=== PATIENT | male | born 1950 | race Two or more races ===

== ENCOUNTER 2017-07-31 10:19 | Inpatient (IN) | payer OTHER ==
[2017-07-31 13:14] VITALS: BMI 22.4
--- NOTE | 2017-07-31 14:06 | HP ---
COWS - Scale Resting Pulse: 0= [place] 80 or Below Sweatin=Flushed/Facial Moisture Restless Observation: 3= Extraneous Movement Pupil Size: 2= Moderately Dilated Bone or Joint Aches: 2= Severe Diffuse Aches Runny Nose/ Eye Tearin= Runny Nose/Eyes GI Upset > 30mins: 3= Vomiting/Diarrhea Tremor Observation: 2= Slight Tremor Visible Yawning Observation: 2= >3x During Session Anxiety or Irritability: 2=Irritable/Anxious Goose Flesh Skin: 0=Smooth Skin COWS Score: 20 Admission ROS S - HPI Chief Complaint: I NEED HELP TO STOP USING HEROIN Allergies/Adverse Reactions: Allergies Allergy/AdvReac Type Severity Reaction Status Date / Time No Known Allergies Allergy Verified 07/31/17 13:52 History of Present Illness: THIS 67 YEARS OLD MALE WITH HEROIN DEPENDENCE,SEEKING DETOX,WITHDRAWAL SYMPTOM, LAST DETOX [facility] IN 12/27 SQUAMOUS CELL CARCINOMA OF RIGHT NECK S/P RADICAL NECK DISSECTION,CHEMO AND RADIATION IN 2000 ON RENISSION NICOTINE DEPENDENCE LONGEST PERIOD OF SOBRIETY 6 YEARS Exam Limitations: No Limitations - Ebola screening Have you traveled outside of the country in the last 21 days: No Have you had contact with anyone from an Ebola affected area: No Have you been sick,other than usual withdrawal symptoms: No Do you have a fever: No - Review of Systems Constitutional: Chills, Loss of Appetite, Malaise, Night Sweats, Changes in sleep, Unintentional Wgt. Loss EENT: reports: Tearing, Nose Congestion, Other (S/P RIGHT RADICAL NEC DISSECTION FOR SQUAMOUS CELL CARCINOMA RIGH TNECK ALSO CHEMO AND RADIATION THERAPY DEVIATED NASAL SEPTUM LEFT) Respiratory: reports: No Symptoms reported Cardiac: reports: No Symptoms Reported GI: reports: Diarrhea, Nausea, Vomiting, Abdominal cramping, Other (GERD NO MEDICATION NOW) : reports: No Symptoms Reported Musculoskeletal: reports: Joint Pain, Muscle Pain, Muscle Weakness, Joint Stiffness Integumentary: reports: Dryness Neuro: reports: Headache, Tremors Endocrine: reports: No Symptoms Reported, Other (HYPOTHYROIDISM) Hematology: reports: No Symptoms Reported Psychiatric: reports: No Sypmtoms Reported, Judgement Intact, Mood/Affect Appropiate, Orientated x3, Depressed Patient History - Patient Medical History Hx Anemia: No Hx Asthma: No Hx Chronic Obstructive Pulmonary Disease (COPD): No Hx Cancer: Yes (CA OF NECK S/P SURGERY,CHEMO AND RADIATION) Hx Cardiac Disorders: No Hx Congestive Heart Failure: No Hx Hypertension: No Hx Hypercholesterolemia: No Hx Pacemaker: No HX Cerebrovascular Accident: No Hx Seizures: No Hx Dementia: No Hx Diabetes: No Hx Gastrointestinal Disorders: No Hx Liver Disease: No Hx Genitourinary Disorders: No Hx Sexually Transmitted Disorders: No Hx Renal Disease (ESRD): No Hx Thyroid Disease: Yes (HYPOTHYROIDISM) Hx Human Immunodeficiency Virus (HIV): No (LAST 12/27 NEGATIVE) Hx Hepatitis C: No Hx Depression: Yes Hx Suicide Attempt: No Hx Bipolar Disorder: No Hx Schizophrenia: No Other Medical History: NO SUICIDAL,NO HOMICIDAL,DEVIATED NASAL SEPTUM LEFT - Patient Surgical History Past Surgical History: Yes Other Surgical History: RADICAL NECK DISSECTION IN RIGHT S/P CHEMOTHERAPY AND RADIATION - PPD History Previous Implant?: Yes Documented Results: Negative w/o proof Implanted On Prior [facility] Admission?: No PPD to be Administered?: Yes - Smoking Cessation Smoking history: Current every day smoker Have you smoked in the past 12 months: Yes Aproximately how many cigarettes per day: 3 Cigars Per Day: 0 Hx Chewing Tobacco Use: No Initiated information on smoking cessation: Yes 'Breaking Loose' booklet given: 08/07/17 - Substance & Tx. History Hx Alcohol Use: No Hx Substance Use: Yes Substance Use Type: Heroin Hx Substance Use Treatment: Yes ([facility] 12/27) - Substances Abused Heroin Route: Inhalation Frequency: Daily Amount used: 3 bags Age of first use: 35 Date of Last Use: 07/30/17 Family Disease History - Family Disease History Family History: Denies Family Disease History: Other: Brother (ALCOHOL,DSA,) Admission Physical Exam S - Vital Signs Vital Signs: Vital Signs - 24 hr 07/31/17 13:13 Temperature 96 F L Pulse Rate 57 L Respiratory 20 Rate Blood Pressure 132/75 - Physical General Appearance: Yes: Moderate Distress, Tremorous, Irritable, Sweating, Anxious HEENTM: Yes: Normal ENT Inspection, TORY, Pharynx Normal, Other (S/P RADICAL NECK DISSECTION FOR CA OF RIGHT NECK IN 2000 S/P RADIATION AND CHEMOTHERAPY ON REMISSION) Respiratory: Yes: Within Normal Limits, Normal Breath Sounds, No Respiratory Distress Neck: Yes: Within Normal Limits Breast: Yes: Within Normal Limits Cardiology: Yes: Within Normal Limits, Regular Rhythm, Regular Rate, S1, S2 Abdominal: Yes: Within Normal Limits, Normal Bowel Sounds, Non Tender, Flat, Soft Genitourinary: Yes: Within Normal Limits Back: Yes: Muscle Spasm Musculoskeletal: Yes: full range of Motion, Back pain, Joint Stiffness, Muscle Pain Extremities: Yes: Tremors Neurological: Yes: plaster foreman II-XII NML intact, Fully Oriented, Alert, Motor Strength 5/5 Integumentary: Yes: Dry Lymphatic: Yes: Within Normal Limits - Diagnostic (1) Opioid dependence with withdrawal Current Visit: Yes Status: Acute (2) History of radical dissection of right side of neck Current Visit: Yes Status: Acute (3) History of radiation therapy Current Visit: Yes Status: Acute (4) History of chemotherapy Current Visit: Yes Status: Acute (5) Weight loss Current Visit: Yes Status: Acute (6) Hypothyroidism Current Visit: Yes Status: Acute (7) Deviated nasal septum Current Visit: Yes Status: Acute Cleared for Admission [facility] - Detox or Rehab [facility] Level of Care: Medically Managed Detox Regimen/Protocol: Methadone [facility] Breath Alcohol Content Breath Alcohol Content: 0 Urine Drug Screen - Results Drug Screen Negative: No Urine Drug Screen Results: OPI-Opiates, OXY-Oxycodone
[2017-07-31] MEDS ORDERED: hydrOXYzine PAMOATE 25 MG CAPSULE (FP) PO PRN (14:38)
[2017-07-31] MEDS ORDERED: guaiFENesin/D-METHORPHAN HB 10 ML UNIT-DOSE CUPS PO PRN (14:38)
[2017-07-31] MEDS ORDERED: MAGNESIUM CITRATE 300 ML BOTTLE PO PRN (14:38)
[2017-07-31] MEDS ORDERED: MAG HYDROX/AL HYDROX/SIMETH 30 ML UNIT-DOSE CUP PO PRN (14:38)
[2017-07-31] MEDS ORDERED: ACETAMINOPHEN 325 MG TABLET (FP) PO PRN (14:38)
[2017-07-31] MEDS ORDERED: MENTHOL/PHENOL 1 EACH UD MM PRN (14:38)
[2017-07-31] MEDS ORDERED: P-EPHED 60MG/TRIPROLIDI 2.5MG TABLET PO PRN (14:38)
[2017-07-31] MEDS ORDERED: MAGNESIUM HYDROX 2400MG/30ML ORAL SUSPENSION 30 ML CUP PO PRN (14:38)
[2017-07-31] MEDS ORDERED: IBUPROFEN 400 MG TABLET (FP) PO PRN (14:38)
[2017-07-31] MEDS ORDERED: LOPERAMIDE HCL 2 MG CAPSULE PO PRN (14:38)
[2017-07-31] MEDS ORDERED: METHADONE HCL 10 MG TABLET (FOR DETOX USE ONLY) PO ONE ×2 (14:50→23:00)
[2017-07-31] MEDS: diazePAM 5 MG TABLET PO PRN (16:54)
[2017-07-31] MEDS: MELATONIN 5 MG TABLETS PO SCH (22:30)
[2017-07-31] MEDS: THIAMINE HCL 100 MG TABLET (FP) PO SCH (22:30)
[2017-08-01] MEDS: LEVOTHYROXINE NA 25 MCG TABLET (FP) PO SCH (07:29)
--- NOTE | 2017-08-01 08:23 | EKG ---
Test Reason : Blood Pressure : / mmHG Vent. Rate : 077 BPM Atrial Rate : 077 BPM P-R Int : 148 ms QRS Dur : 082 ms QT Int : 386 ms P-R-T Axes : 084 078 066 degrees QTc Int : 436 ms NORMAL SINUS RHYTHM NORMAL ECG NO PREVIOUS ECGS AVAILABLE Confirmed by YASMANI FARFAN, DEBORAH ([id number]) on 08/01/2017 8:22:35 AM Referred By: Confirmed By:DEBORAH GRUBER MD
--- NOTE | 2017-08-01 09:31 | CONSULT ---
[facility] Psychiatric Consult - Data Date of interview: 08/01/17 Admission source: [facility] Identifying data: Pt. is a 67 year old single male, father of two, retired ( employee of a telephone company), and lives in a one bedroom apartment. This is patient's first admission to [facility]. Pt. admitted to [facility] detox for opioid dependence. Substance Abuse History: Following information confirmed with Mr. Alvarenga: Smoking Cessation. Smoking history: Current every day smoker. Have you smoked in the past 12 months: Yes. Aproximately how many cigarettes per day: 3. Cigars Per Day: 0. Hx Chewing Tobacco Use: No. Initiated information on smoking cessation: Yes. 'Breaking Loose' booklet given: 08/07/17. - Substance & Tx. History. Hx Alcohol Use: No. Hx Substance Use: Yes. Substance Use Type : Heroin. Hx Substance Use Treatment: Yes ([facility] 12/27). - Substances Abused. Heroin. Route: Inhalation. Frequency: Daily. Amount used: 3 bags. Age of first use: 35. Date of Last Use: 07/30/17 Medical History: CA OF NECK S/P SURGERY,CHEMO AND RADIATION, hypothyroidism Psychiatric History: Patient denies h/o psychiatric hospitalizations and suicide attempt. Pt reports outpatient care approximately 5-6 years ago in which patient was diagnosed with depression and started on zoloft. Pt. reports nonadherence to medication and outpatient care. Physical/Sexual Abuse/Trauma History: Denies. Mental Status Exam - Mental Status Exam Alert and Oriented to: Time, Place, Person Cognitive Function: Good Patient Appearance: Well Groomed Mood: Euthymic Affect: Mood Congruent Patient Behavior: Cooperative Speech Pattern: Appropriate Voice Loudness: Normal Thought Process: Goal Oriented Thought Disorder: Not Present Hallucinations: Denies Suicidal Ideation: Denies Homicidal Ideation: Denies Insight/Judgement: Poor Sleep: Fair Appetite: Fair Muscle strength/Tone: Normal Gait/Station: Other (Did not observe patient's gait.) Psychiatric Findings - Problem List ([place] 1, 2,3) (1) Opioid dependence with withdrawal Current Visit: Yes Status: Acute (2) Substance induced mood disorder Current Visit: Yes Status: Suspected - Initial Treatment Plan Initial Treatment Plan: Psychoeducation provided. Detoxification in progress. Observation.
[2017-08-01] MEDS ORDERED: METHADONE HCL 10 MG TABLET (FOR DETOX USE ONLY) PO ONE (10:00)
[2017-08-01 10:13] LABS: ALBUMIN 3.9 g/dl (3.4-5.0); ALK PHOS 86 U/L (45-117); ANION GAP 10 (8-16); BILIRUBIN,TOTAL 0.5 mg/dL (0.2-1.0); BLOOD UREA NITROGEN 12 mg/dL (7-18); CALCIUM 9.4 mg/dL (8.5-10.1); CHLORIDE 101 mmol/L (98-107); CO2 30 mmol/L (21-32); CREATININE 0.8 mg/dL (0.7-1.3); GLUCOSE,RANDOM 85 mg/dL (74-106); POTASSIUM 4.2 mmol/L (3.5-5.1); SGOT/AST 17 U/L (15-37); SGPT/ALT 17 U/L (12-78); SODIUM 141 mmol/L (136-145); TOT PROT 7.4 g/dl (6.4-8.2)
[2017-08-01 10:16] LABS: HEMATOCRIT 39.4 % (35.4-49); HEMOGLOBIN 12.9 GM/dL (11.7-16.9); MCH 28.7 pg (25.7-33.7); MCHC 32.7 g/dl (32.0-35.9); MEAN CELL VOLUME 87.7 fl (80-96); MEAN PLT VOLUME 7.6 fl (7.5-11.1); PLATELET COUNT 256 K/MM3 (134-434); RDW 14.8 % (11.9-15.9); WHITE BLOOD COUNT 4.2 K/mm3 (4.0-10.0)
[2017-08-01] MEDS: FLUTICASONE PROP 0.05% 16 GM NASAL SPRAY NS SCH ×2 (10:37→22:37)
[2017-08-01] MEDS: PRENATAL VITAMINS W/ FOLIC ACID TABLET (FP) PO SCH (10:37)
[2017-08-01] MEDS ORDERED: PNEUMOC 13-VAL CONJ-DIP CRM/PF 0.5 ML DISP.SYRIN IM ONE (12:00)
[2017-08-01] MEDS ORDERED: FLU VACCINE QUAD 60 MCG/0.5 ML (MDV 17-18) IM ONE (12:00)
--- NOTE | 2017-08-01 14:44 | PN ---
[facility] COWS - Scale Resting Pulse: 0= [place] 80 or Below Sweatin= Chills/Flushing Restless Observation: 0= Sits Still Pupil Size: 0= Normal to Room Light Bone or Joint Aches: 0= None Runny Nose/ Eye Tearin= None GI Upset > 30mins: 2= Nausea/Diarrhea Tremor Observation of Outstretched Hands: 2= Slight Tremor Visible Yawning Observation: 2= >3x During Session Anxiety or Irritability: 2=Irritable/Anxious Goose Flesh Skin: 3=Piloerection COWS Score: 12 BHS Progress Note (SOAP) Subjective: Stomach Cramping, Diarrhea, Sweating, Fatigue, H/A. Objective: PATIENT A & O X 3, OBSERVED AMBULATING ON UNIT. NO ACUTE DISTRESS. 08/01/17 14:42 Vital Signs Temperature 96.2 F L 08/01/17 13:56 Pulse Rate 78 08/01/17 13:56 Respiratory Rate 18 08/01/17 13:56 Blood Pressure 92/63 08/01/17 13:56 O2 Sat by Pulse Oximetry (%) Laboratory Tests 08/01/17 08/01/17 08/01/17 07:30 07:30 07:30 WBC 4.2 RBC 4.50 Hgb 12.9 Hct 39.4 MCV 87.7 MCH 28.7 MCHC 32.7 RDW 14.8 Plt Count 256 MPV 7.6 Sodium 141 Potassium 4.2 Chloride 101 Carbon Dioxide 30 Anion Gap 10 BUN 12 Creatinine 0.8 Creat Clearance w eGFR > 60 Random Glucose 85 Calcium 9.4 Total Bilirubin 0.5 AST 17 ALT 17 Alkaline Phosphatase 86 Total Protein 7.4 Albumin 3.9 RPR Titer HIV 1&2 Antibody Screen Negative HIV P24 Antigen Negative 08/01/17 07:40 WBC RBC Hgb Hct MCV MCH MCHC RDW Plt Count MPV Sodium Potassium Chloride Carbon Dioxide Anion Gap BUN Creatinine Creat Clearance w eGFR Random Glucose Calcium Total Bilirubin AST ALT Alkaline Phosphatase Total Protein Albumin RPR Titer Nonreactive HIV 1&2 Antibody Screen HIV P24 Antigen LABS NOTED. UA RESULTS PENDING. 08/01/17 14:44 Assessment: 08/01/17 14:43 WITHDRAWAL SYMPTOMS. Plan: CONTINUE DETOX. INCREASE DAILY PO FLUID INTAKE. PRN IMMODIUM FOR DIARRHEA.
[2017-08-01] MEDS: THIAMINE HCL 100 MG TABLET (FP) PO SCH (22:37)
[2017-08-01] MEDS: MELATONIN 5 MG TABLETS PO SCH (22:37)
[2017-08-01] MEDS: diazePAM 5 MG TABLET PO PRN (22:42)
[2017-08-02] MEDS: diazePAM 5 MG TABLET PO PRN (06:38)
[2017-08-02] MEDS: LEVOTHYROXINE NA 25 MCG TABLET (FP) PO SCH (06:38)
[2017-08-02] MEDS ORDERED: METHADONE HCL 5 MG TABLET (FOR DETOX USE ONLY) PO ONE (10:00)
[2017-08-02] MEDS: PRENATAL VITAMINS W/ FOLIC ACID TABLET (FP) PO SCH ×2 (10:45→10:46)
[2017-08-02] MEDS: FLUTICASONE PROP 0.05% 16 GM NASAL SPRAY NS SCH ×2 (10:46→22:27)
[2017-08-02] MEDS ORDERED: PNEUMOC 13-VAL CONJ-DIP CRM/PF 0.5 ML DISP.SYRIN IM ONE (12:00)
[2017-08-02] MEDS ORDERED: FLU VACCINE QUAD 60 MCG/0.5 ML (MDV 17-18) IM ONE (12:00)
--- NOTE | 2017-08-02 16:06 | PN ---
[facility] COWS - Scale Resting Pulse: 0= [place] 80 or Below Sweatin= Chills/Flushing Restless Observation: 1= Difficult to Sit Still Pupil Size: 0= Normal to Room Light Bone or Joint Aches: 0= None Runny Nose/ Eye Tearin= Nasal Congestion GI Upset > 30mins: 2= Nausea/Diarrhea Tremor Observation of Outstretched Hands: 0= None Yawning Observation: 2= >3x During Session Anxiety or Irritability: 2=Irritable/Anxious Goose Flesh Skin: 3=Piloerection COWS Score: 12 BHS Progress Note (SOAP) Subjective: Fatigue, Stomach Cramping, Diarrhea, Interrupted Sleep, Sweating. Objective: PATIENT A & O X 3, OBSERVED AMBULATING ON UNIT. NO ACUTE DISTRESS. 08/02/17 16:04 Vital Signs Temperature 96.8 F L 08/02/17 14:15 Pulse Rate 58 L 08/02/17 14:15 Respiratory Rate 20 08/02/17 14:15 Blood Pressure 86/56 08/02/17 14:15 O2 Sat by Pulse Oximetry (%) Laboratory Tests 08/01/17 08/01/17 08/01/17 07:30 07:30 07:30 WBC 4.2 RBC 4.50 Hgb 12.9 Hct 39.4 MCV 87.7 MCH 28.7 MCHC 32.7 RDW 14.8 Plt Count 256 MPV 7.6 Sodium 141 Potassium 4.2 Chloride 101 Carbon Dioxide 30 Anion Gap 10 BUN 12 Creatinine 0.8 Creat Clearance w eGFR > 60 Random Glucose 85 Calcium 9.4 Total Bilirubin 0.5 AST 17 ALT 17 Alkaline Phosphatase 86 Total Protein 7.4 Albumin 3.9 RPR Titer HIV 1&2 Antibody Screen Negative HIV P24 Antigen Negative 08/01/17 07:40 WBC RBC Hgb Hct MCV MCH MCHC RDW Plt Count MPV Sodium Potassium Chloride Carbon Dioxide Anion Gap BUN Creatinine Creat Clearance w eGFR Random Glucose Calcium Total Bilirubin AST ALT Alkaline Phosphatase Total Protein Albumin RPR Titer Nonreactive HIV 1&2 Antibody Screen HIV P24 Antigen LABS NOTED. UA RESULTS PENDING. 08/02/17 16:06 Assessment: 08/02/17 16:05 WITHDRAWAL SYMPTOMS. Plan: CONTINUE DETOX. INCREASE DAILY PO FLUID INTAKE.
[2017-08-02] MEDS: MELATONIN 5 MG TABLETS PO SCH (22:26)
[2017-08-02] MEDS: THIAMINE HCL 100 MG TABLET (FP) PO SCH (22:27)
[2017-08-03] MEDS: diazePAM 5 MG TABLET PO PRN (05:46)
[2017-08-03] MEDS: LEVOTHYROXINE NA 25 MCG TABLET (FP) PO SCH (06:27)
[2017-08-03] MEDS ORDERED: METHADONE HCL 5 MG TABLET (FOR DETOX USE ONLY) PO ONE (10:00)
[2017-08-03] MEDS: FLUTICASONE PROP 0.05% 16 GM NASAL SPRAY NS SCH ×2 (10:39→22:42)
[2017-08-03] MEDS: PRENATAL VITAMINS W/ FOLIC ACID TABLET (FP) PO SCH (10:39)
[2017-08-03 10:46] LABS: URINE APPEARANCE CLEAR; URINE BILIRUBIN NEGATIVE (<2.0 mg/dL); URINE BLOOD NEGATIVE (NEGATIVE); URINE COLOR STRAW; URINE GLUCOSE (UA) NEGATIVE (NEGATIVE); URINE KETONE NEGATIVE (NEGATIVE); URINE LEUK ESTERASE NEGATIVE (NEGATIVE); URINE NITRITE NEGATIVE (NEGATIVE); URINE PROTEIN NEGATIVE (NEGATIVE); URINE UROBILINOGEN NEGATIVE mg/dL (0.2-1.0)
--- NOTE | 2017-08-03 17:38 | PN ---
BHS Progress Note (SOAP) Subjective: Fatigue, Tremors, Interrupted Sleep. Objective: PATIENT A & O X 3, OBSERVED AMBULATING ON UNIT. NO ACUTE DISTRESS. PATIENT REPORTS HISTORY OF HYPOTENSION. 08/03/17 17:37 Vital Signs Temperature 96 F L 08/03/17 14:57 Pulse Rate 60 08/03/17 14:57 Respiratory Rate 20 08/03/17 14:57 Blood Pressure 97/65 08/03/17 14:57 O2 Sat by Pulse Oximetry (%) Laboratory Tests 08/01/17 08/01/17 08/01/17 07:30 07:30 07:30 WBC 4.2 RBC 4.50 Hgb 12.9 Hct 39.4 MCV 87.7 MCH 28.7 MCHC 32.7 RDW 14.8 Plt Count 256 MPV 7.6 Sodium 141 Potassium 4.2 Chloride 101 Carbon Dioxide 30 Anion Gap 10 BUN 12 Creatinine 0.8 Creat Clearance w eGFR > 60 Random Glucose 85 Calcium 9.4 Total Bilirubin 0.5 AST 17 ALT 17 Alkaline Phosphatase 86 Total Protein 7.4 Albumin 3.9 Urine Color Urine Appearance Urine pH Ur Specific [place] Urine Protein Urine Glucose (UA) Urine Ketones Urine Blood Urine Nitrite Urine Bilirubin Urine Urobilinogen Ur Leukocyte Esterase RPR Titer HIV 1&2 Antibody Screen Negative HIV P24 Antigen Negative 08/01/17 08/03/17 07:40 07:40 WBC RBC Hgb Hct MCV MCH MCHC RDW Plt Count MPV Sodium Potassium Chloride Carbon Dioxide Anion Gap BUN Creatinine Creat Clearance w eGFR Random Glucose Calcium Total Bilirubin AST ALT Alkaline Phosphatase Total Protein Albumin Urine Color Straw Urine Appearance Clear Urine pH 6.0 Ur Specific [place] 1.008 Urine Protein Negative Urine Glucose (UA) Negative Urine Ketones Negative Urine Blood Negative Urine Nitrite Negative Urine Bilirubin Negative Urine Urobilinogen Negative Ur Leukocyte Esterase Negative RPR Titer Nonreactive HIV 1&2 Antibody Screen HIV P24 Antigen LABS NOTED. Assessment: 08/03/17 17:37 WITHDRAWAL SYMPTOMS. Plan: CONTINUE DETOX. INCREASE DAILY PO FLUID INTAKE.
[2017-08-03] MEDS: MELATONIN 5 MG TABLETS PO SCH (22:41)
[2017-08-03] MEDS: THIAMINE HCL 100 MG TABLET (FP) PO SCH (22:41)
[2017-08-04] MEDS: LEVOTHYROXINE NA 25 MCG TABLET (FP) PO SCH (06:05)
[2017-08-04] MEDS ORDERED: METHADONE HCL 10 MG TABLET (FOR DETOX USE ONLY) PO ONE (10:00)
[2017-08-04] MEDS: PRENATAL VITAMINS W/ FOLIC ACID TABLET (FP) PO SCH (10:37)
[2017-08-04] MEDS: FLUTICASONE PROP 0.05% 16 GM NASAL SPRAY NS SCH ×2 (10:37→22:40)
--- NOTE | 2017-08-04 15:26 | PN ---
BHS Progress Note (SOAP) Subjective: Tremor, chills, sweating, interrupted sleep Objective: 08/04/17 15:25 Last Vital Signs Temp Pulse Resp BP Pulse Ox 96.4 F L 60 18 82/64 08/04/17 14:12 08/04/17 14:12 08/04/17 14:12 08/04/17 14:12 Laboratory Tests 08/01/17 08/01/17 08/01/17 07:30 07:30 07:30 WBC 4.2 RBC 4.50 Hgb 12.9 Hct 39.4 MCV 87.7 MCH 28.7 MCHC 32.7 RDW 14.8 Plt Count 256 MPV 7.6 Sodium 141 Potassium 4.2 Chloride 101 Carbon Dioxide 30 Anion Gap 10 BUN 12 Creatinine 0.8 Creat Clearance w eGFR > 60 Random Glucose 85 Calcium 9.4 Total Bilirubin 0.5 AST 17 ALT 17 Alkaline Phosphatase 86 Total Protein 7.4 Albumin 3.9 Urine Color Urine Appearance Urine pH Ur Specific [place] Urine Protein Urine Glucose (UA) Urine Ketones Urine Blood Urine Nitrite Urine Bilirubin Urine Urobilinogen Ur Leukocyte Esterase RPR Titer HIV 1&2 Antibody Screen Negative HIV P24 Antigen Negative 08/01/17 08/03/17 07:40 07:40 WBC RBC Hgb Hct MCV MCH MCHC RDW Plt Count MPV Sodium Potassium Chloride Carbon Dioxide Anion Gap BUN Creatinine Creat Clearance w eGFR Random Glucose Calcium Total Bilirubin AST ALT Alkaline Phosphatase Total Protein Albumin Urine Color Straw Urine Appearance Clear Urine pH 6.0 Ur Specific [place] 1.008 Urine Protein Negative Urine Glucose (UA) Negative Urine Ketones Negative Urine Blood Negative Urine Nitrite Negative Urine Bilirubin Negative Urine Urobilinogen Negative Ur Leukocyte Esterase Negative RPR Titer Nonreactive HIV 1&2 Antibody Screen HIV P24 Antigen Labs noted Assessment: 08/04/17 15:25 Withdrawal symptoms Plan: Continue detox Encouraged PO water intake
[2017-08-04] MEDS: THIAMINE HCL 100 MG TABLET (FP) PO SCH (22:40)
[2017-08-04] MEDS: MELATONIN 5 MG TABLETS PO SCH (22:40)
[2017-08-05] MEDS ORDERED: METHADONE HCL 5 MG TABLET (FOR DETOX USE ONLY) PO ONE (06:00)
[2017-08-05] MEDS: LEVOTHYROXINE NA 25 MCG TABLET (FP) PO SCH (06:42)
[2017-08-05 09:46] VITALS: BP 91/62; PULSE 78; TEMP 99.1
--- NOTE | 2017-08-05 12:22 | PN ---
S Progress Note (SOAP) Subjective: DETOX COMPLETED. ALERT O X 3. Objective: 08/05/17 12:21 Vital Signs Temperature 99.1 F 08/05/17 09:44 Pulse Rate 78 08/05/17 09:44 Respiratory Rate 18 08/05/17 09:44 Blood Pressure 91/62 08/05/17 09:44 O2 Sat by Pulse Oximetry (%) Laboratory Last Values WBC 4.2 K/mm3 (4.0-10.0) 08/01/17 07:30 RBC 4.50 M/mm3 (4.00-5.60) 08/01/17 07:30 Hgb 12.9 GM/dL (11.7-16.9) 08/01/17 07:30 Hct 39.4 % (35.4-49) 08/01/17 07:30 MCV 87.7 fl (80-96) 08/01/17 07:30 MCH 28.7 pg (25.7-33.7) 08/01/17 07:30 MCHC 32.7 g/dl (32.0-35.9) 08/01/17 07:30 RDW 14.8 % (11.9-15.9) 08/01/17 07:30 Plt Count 256 K/MM3 (134-434) 08/01/17 07:30 MPV 7.6 fl (7.5-11.1) 08/01/17 07:30 Sodium 141 mmol/L (136-145) 08/01/17 07:30 Potassium 4.2 mmol/L (3.5-5.1) 08/01/17 07:30 Chloride 101 mmol/L (98-107) 08/01/17 07:30 Carbon Dioxide 30 mmol/L (21-32) 08/01/17 07:30 Anion Gap 10 (8-16) 08/01/17 07:30 BUN 12 mg/dL (7-18) 08/01/17 07:30 Creatinine 0.8 mg/dL (0.7-1.3) 08/01/17 07:30 Creat Clearance w eGFR > 60 (>60) 08/01/17 07:30 Random Glucose 85 mg/dL (74-106) 08/01/17 07:30 Calcium 9.4 mg/dL (8.5-10.1) 08/01/17 07:30 Total Bilirubin 0.5 mg/dL (0.2-1.0) 08/01/17 07:30 AST 17 U/L (15-37) 08/01/17 07:30 ALT 17 U/L (12-78) 08/01/17 07:30 Alkaline Phosphatase 86 U/L (45-117) 08/01/17 07:30 Total Protein 7.4 g/dl (6.4-8.2) 08/01/17 07:30 Albumin 3.9 g/dl (3.4-5.0) 08/01/17 07:30 Urine Color Straw 08/03/17 07:40 Urine Appearance Clear 08/03/17 07:40 Urine pH 6.0 (5.0-8.0) 08/03/17 07:40 Ur Specific [place] 1.008 (1.001-1.035) 08/03/17 07:40 Urine Protein Negative (NEGATIVE) 08/03/17 07:40 Urine Glucose (UA) Negative (NEGATIVE) 08/03/17 07:40 Urine Ketones Negative (NEGATIVE) 08/03/17 07:40 Urine Blood Negative (NEGATIVE) 08/03/17 07:40 Urine Nitrite Negative (NEGATIVE) 08/03/17 07:40 Urine Bilirubin Negative (<2.0 mg/dL) 08/03/17 07:40 Urine Urobilinogen Negative mg/dL (0.2-1.0) 08/03/17 07:40 Ur Leukocyte Esterase Negative (NEGATIVE) 08/03/17 07:40 RPR Titer Nonreactive (NONREACTIVE) 08/01/17 07:40 HIV 1&2 Antibody Screen Negative 08/01/17 07:30 HIV P24 Antigen Negative 08/01/17 07:30 Assessment: 08/05/17 12:22 NAD Plan: D/C PT TODAY.
--- NOTE | 2017-08-05 12:25 | DS ---
[facility] Detox Discharge Summary Admission Date: 07/31/17 Discharge Date: 08/05/17 - History Present History: Opioid Dependence Additional Comments: DETOX COMPLETED. ALERT O X 3. PT STATES HE IS GOING HOME TODAY. REPORTS HE HAS A PRIMARY CARE PROVIDER, DR. JH ABRAHAM AT [address] [place] [address] FOR FOLLOW MEDICAL FOLLOW UP. Pertinent Past History: PLEASE SEE DX BELOW - Physical Exam Results Vital Signs: Vital Signs Temperature 99.1 F 08/05/17 09:44 Pulse Rate 78 08/05/17 09:44 Respiratory Rate 18 08/05/17 09:44 Blood Pressure 91/62 08/05/17 09:44 O2 Sat by Pulse Oximetry (%) Pertinent Admission Physical Exam Findings: WITHDRAWAL SX Laboratory Last Values WBC 4.2 K/mm3 (4.0-10.0) 08/01/17 07:30 RBC 4.50 M/mm3 (4.00-5.60) 08/01/17 07:30 Hgb 12.9 GM/dL (11.7-16.9) 08/01/17 07:30 Hct 39.4 % (35.4-49) 08/01/17 07:30 MCV 87.7 fl (80-96) 08/01/17 07:30 MCH 28.7 pg (25.7-33.7) 08/01/17 07:30 MCHC 32.7 g/dl (32.0-35.9) 08/01/17 07:30 RDW 14.8 % (11.9-15.9) 08/01/17 07:30 Plt Count 256 K/MM3 (134-434) 08/01/17 07:30 MPV 7.6 fl (7.5-11.1) 08/01/17 07:30 Sodium 141 mmol/L (136-145) 08/01/17 07:30 Potassium 4.2 mmol/L (3.5-5.1) 08/01/17 07:30 Chloride 101 mmol/L (98-107) 08/01/17 07:30 Carbon Dioxide 30 mmol/L (21-32) 08/01/17 07:30 Anion Gap 10 (8-16) 08/01/17 07:30 BUN 12 mg/dL (7-18) 08/01/17 07:30 Creatinine 0.8 mg/dL (0.7-1.3) 08/01/17 07:30 Creat Clearance w eGFR > 60 (>60) 08/01/17 07:30 Random Glucose 85 mg/dL (74-106) 08/01/17 07:30 Calcium 9.4 mg/dL (8.5-10.1) 08/01/17 07:30 Total Bilirubin 0.5 mg/dL (0.2-1.0) 08/01/17 07:30 AST 17 U/L (15-37) 08/01/17 07:30 ALT 17 U/L (12-78) 08/01/17 07:30 Alkaline Phosphatase 86 U/L (45-117) 08/01/17 07:30 Total Protein 7.4 g/dl (6.4-8.2) 08/01/17 07:30 Albumin 3.9 g/dl (3.4-5.0) 08/01/17 07:30 Urine Color Straw 08/03/17 07:40 Urine Appearance Clear 08/03/17 07:40 Urine pH 6.0 (5.0-8.0) 08/03/17 07:40 Ur Specific [place] 1.008 (1.001-1.035) 08/03/17 07:40 Urine Protein Negative (NEGATIVE) 08/03/17 07:40 Urine Glucose (UA) Negative (NEGATIVE) 08/03/17 07:40 Urine Ketones Negative (NEGATIVE) 08/03/17 07:40 Urine Blood Negative (NEGATIVE) 08/03/17 07:40 Urine Nitrite Negative (NEGATIVE) 08/03/17 07:40 Urine Bilirubin Negative (<2.0 mg/dL) 08/03/17 07:40 Urine Urobilinogen Negative mg/dL (0.2-1.0) 08/03/17 07:40 Ur Leukocyte Esterase Negative (NEGATIVE) 08/03/17 07:40 RPR Titer Nonreactive (NONREACTIVE) 08/01/17 07:40 HIV 1&2 Antibody Screen Negative 08/01/17 07:30 HIV P24 Antigen Negative 08/01/17 07:30 - Treatment Hospital Course: Detox Protocol Followed, Detoxed Safely, Responded well, Discharged Condition Good - Medication Discharge Medications: Ambulatory Orders Levothyroxine [Synthroid -] 50 mcg PO DAILY 07/31/17 - Diagnosis (1) Nicotine dependence Status: Acute Qualifiers: Nicotine product type: cigarettes Substance use status: in withdrawal Qualified Code(s): F17.213 - Nicotine dependence, cigarettes, with withdrawal (2) Opioid dependence with withdrawal Status: Acute (3) Weight loss Status: Acute (4) Deviated nasal septum Status: Chronic (5) History of radical dissection of right side of neck Status: Chronic (6) Hypothyroidism Status: Chronic Qualifiers: Hypothyroidism type: unspecified Qualified Code(s): E03.9 - Hypothyroidism , unspecified - AMA Did Patient Leave Against Medical Advice: No
== END 2017-08-05 09:45 | disposition home or self-care (01) | DRG 897 ==
LOC: YASAS 10:19 → Y3N 14:29
PROVIDERS: ADMIT Internal Medicine; ATTEND Internal Medicine
PROC: HZ2ZZZZ Detoxification Services for Substance Abuse Treatment (ICD-10-PCS; principal; 2017-07-31)
DX: F11.23 Opioid dependence with withdrawal (principal); F17.213 Nicotine dependence, cigarettes, with withdrawal; F19.24 Other psychoactive substance dependence with psychoactive substance-induced mood disorder; E03.9 Hypothyroidism, unspecified; J34.2 Deviated nasal septum; Z85.89 Personal history of malignant neoplasm of other organs and systems; Z92.3 Personal history of irradiation; Z92.21 Personal history of antineoplastic chemotherapy; Z87.898 Personal history of other specified conditions
CPT/HCPCS: 36415; 80053; 81003; 85027; 86593; 87389; 90670; 90688; 93005; 93010; G0008; G0009